=== PATIENT | female | born 1955 ===

== ENCOUNTER 2025-09-15 08:00 | Day surgery (SDC) | payer OTHER ==
[2025-09-08 13:35] VITALS: BP 111/70
[~2025-09-15] VITALS: Ht 172.7 cm; Wt 54.4 kg
[~2025-09-15 08:00] MED LIST: AMLODIPINE 2.5 MG; ANASTROZOLE1 MG; ATORVASTATIN CA20 MG; CO Q-10100 MG PO; OMEGA 3; REPATHA SU140 MG/1 M; VITAMIN D
[2025-09-15] MEDS ORDERED: POVIDONE-IODINE 118 ML BOTT TOP ONE (10:53)
[2025-09-15] MEDS ORDERED: IBU600 MG PO (12:56)
== END 2025-09-15 15:15 | disposition home or self-care (01) ==
LOC: CIR.AMB 08:00
PROVIDERS: ATTEND Obstetrics & Gynecology Gynecology
DX: N95.0 Postmenopausal bleeding (principal); N84.0 Polyp of corpus uteri